=== PATIENT | male | born 1975 | race Caucasian/White ===

== ENCOUNTER 2021-09-04 11:47 | Emergency (ER) | payer OTHER, SELFPAY ==
[2021-09-04 13:38] VITALS: BP 162/100; PULSE 93; RESP 16; TEMP 36.7; O2SAT 96; BMI 25.2
[2021-09-04 13:55] VITALS: BP 159/96; PULSE 97; RESP 16; O2SAT 96
[2021-09-04] MEDS: 0.9 % Sodium Chloride 1,000 ML 999 ML IV (14:19)
--- NOTE | 2021-09-04 14:21 | ED.SKABFB ---
HPI - Skin/Abscess/Foreign Bdy General Chief complaint: Skin/Abscess/Foreign Body Stated complaint: peace of food stuck in throat Time Seen by Provider: 09/04/21 13:54 Source: patient Mode of arrival: ambulatory Limitations: no limitations History of Present Illness HPI narrative: 46-year-old male who presents emergency department for evaluation of a steak esophageal food bolus obstruction. Patient states that yesterday at around 18:00 hours he ate a piece of steak the he had just grilled. He states that when he swallowed the meat and I got stuck. Patient states that he has tried multiple home remedies including soda, honey and milk without being able to swallow down the food bolus. Patient states he feels like the steak is stuck any points to his xiphoid area when asked to localize the sensation. He states that he is having difficulty swallowing his saliva and has to spit it up. The patient states that he does not have heartburn. He has had no difficulty swallowing liquids or solids until this event. He is not pain or lost any weight. He has never had an endoscopy before. MD complaint: foreign body (A soft) Onset (ago): hour(s) (20) Location: chest (At the level of the xiphoid process) Severity: mild Quality: other (Pressure) Pain Consistency: constant Relieving factors: none Exacerbating factors: none Context: other (Started after he swallowed a large piece of meat) Associated symptoms: denies other symptoms Related Data Allergies Allergy/AdvReac Type Severity Reaction Status Date / Time acetaminophen [From VICODIN] Allergy Unknown HIVES Unverified 11/19/19 15:15 hydrocodone [From VICODIN] Allergy Unknown HIVES Unverified 11/19/19 15:15 Penicillins [PCN] Allergy Unknown HIVES Unverified 11/19/19 15:15 Review of Systems Review of Systems: Yes all other systems are reviewed and are negative [facility] Past Medical History [facility] Narrative: Past medical history: None. Past surgical history left foot fracture requiring ORIF. Social history: He denies tobacco use. He states he drinks 2 beers per day. He denies drug use. Social History Social History Advance Directives: No Advance Directives Information Provided: Yes Physical Exam Vital Signs: Vital Signs: Last Vital Signs Temp 98.0 F 09/04/21 13:38 Pulse 97 09/04/21 13:55 Resp 16 09/04/21 13:55 BP 159/96 H 09/04/21 13:55 Pulse Ox 96 09/04/21 13:55 O2 Del Method 09/04/21 13:55 BMI result Body Mass Index 25.2 Const: General: cooperative and no acute distress Orientation/consciousness: oriented to person and oriented to place Limitations: no limitations HEENT: Head: Yes normal to inspection, Yes normocephalic and Yes atraumatic Ears: external ears normal General nose exam: Normal external nose present Face and sinus: Yes normal facial exam Mouth: Normal oral and palatal mucosa present Throat: Yes posterior oropharynx normal Eyes: General: appearance normal, both eyes and all related structures Pupils: Equal, round and reactive pupils present Neck: Neck: Yes normal visual inspection, Yes no lymphadenopathy, Yes trachea midline and Yes supple Chest: Chest palpation & inspection: normal inspection of the chest and normal palpation of entire chest wall Resp: Effort & Inspection: normal respiratory effort and able to speak in complete sentences Auscultation: clear to auscultation bilaterally Cardio: Rate: regular rate Rhythm: regular rhythm Heart sounds: S1 normal heart sound present, S2 normal heart sound present and no murmurs GI: Inspection: Yes normal to inspection Palpation (GI): Soft to palpation, nontender and no guarding Auscultation: normal bowel sounds : General: Yes no CVA tenderness Back/Spine/Pelvis: Back: no CVA tenderness Skin: General skin exam: no rashes or lesions noted Neuro: General: oriented to person and oriented to place Cranial nerves: Yes CN's II-XII intact bilaterally and Yes Equal, round and reactive pupils present Cognition (Neuro): normal cognition Motor exam (neuro): 5/5 motor strength present throughout Extrem: General: Yes normal to inspection Psych: Appearance: grossly normal Speech and movement: Normal speech and movement present Affect: normal affect Attitude: cooperative Thought process: Normal thought process present Thought content: Normal thought content present Course Course Course Narrative: 46-year-old male who presents emergency department for evaluation of esophageal food bolus obstruction (steak) with symptoms occurring yesterday at 18:00 hours (20 hours prior to evaluation). The patient did not have any prodromal difficulty with swallowing liquids or solids, he has had no reflux/heartburn like symptoms, he has had no weight loss or weight gain. Patient's examination is unremarkable. I did order glucagon 4 mg IV to see if this helps him swallow the food bolus. If this does not work I will try nitroglycerin sublingually. If these to treatments were unsuccessful, I will contact our geothermal plant manager. 1650: The patient was treated with glucagon 4 mg IV and nitroglycerin sublingually x2 tablets with no relief of his obstruction. I did contact the covering geothermal plant manager, Dr. Ruby and he came to the emergency department and evaluated patient. The patient will be taken to the OR for endoscopy, he will be recovered in the postop area and then discharge from there. Therefore the patient will be discharged from the ED prior to going to the OR. Patient's laboratory evaluation revealed a normal H&H of 15 in 43.6 with an elevated MCV of 99.5. Patient's comprehensive metabolic panel revealed an elevated glucose 118, elevated bilirubin 1.4, elevated AST and ALT of 71 and 73. I did discuss these abnormalities with the patient. I told him and concerned that he may be drinking more alcohol states that he is aware of and that this may be causing him to have problems with his liver. The patient understood this discussion and the need to cut down or stop drinking alcohol.. MDM - Skin/Abscess/Foreign Bdy Medical Records Attestation: I reviewed the patient's medical records. Lab Data Attestation: I reviewed the patient's lab results. Result diagrams: 09/04/21 15:38 09/04/21 15:38 Labs: Lab Results 09/04/21 09/04/21 09/04/21 Range/Units 15:37 15:38 15:38 WBC 6.0 (4.8-10.8) X10*3/uL RBC 4.38 L (4.60-5.80) X10*6/uL Hgb 15.3 (14.0-18.0) g/dl Hct 43.6 (42.0-52.0) % MCV 99.5 H (80.0-98.0) fL MCH 34.9 H (27.0-33.0) pg MCHC 35.1 (31.0-36.0) g/dl RDW 11.9 (11.0-16.0) % Plt Count 89 L (160-400) X10*3/uL MPV 10.9 (9.4-12.4) fL Immature Gran % (Auto) 0.5 H (0.0-0.4) % Neut % (Auto) 79.4 H (45-73) % Lymph % (Auto) 9.7 L (20-40) % [place] % (Auto) 8.3 (2-11) % Eos % (Auto) 1.8 (0-4) % Baso % (Auto) 0.3 (0-2) % Lymph # (Auto) 0.6 L (1.2-4.9) X10*3/uL [place] # (Auto) 0.5 (0.1-1.2) X10*3/uL Eos # (Auto) 0.1 (0.0-0.4) X10*3/uL Baso # (Auto) 0.0 (0.0-0.2) X10*3/uL Abs Immat Gran (auto) 0.03 (0.00-0.03) X10*3/uL Absolute Neuts (auto) 4.8 (2.0-8.3) x10*3/uL Absolute Nucleated RBC 0.000 (0.0-0.012) X10*3/uL Nucleated RBC % (auto) 0.0 (0.0-0.2) /100WBC Sodium 144 (135-145) mmol/L Potassium 3.9 (3.3-5.1) mmol/L Chloride 106 (96-108) mmol/L Carbon Dioxide 28 (22-29) mmol/L Anion Gap 14 (12-20) BUN 14 (9-16) mg/dL Creatinine 0.92 (0.5-1.4) mg/dL Estim Creat Clear Calc 119.9 Estimated GFR > 60 Random Glucose 118 H (60-115) mg/dL Calcium 9.2 (8.4-10.2) mg/dL Total Bilirubin 1.4 H (0.0-1.0) mg/dL AST 71 H (5-37) U/L ALT 73 H (0-40) U/L Alkaline Phosphatase 91 (39-117) U/L Total Protein 7.9 (6.5-8.0) g/dL Albumin 4.7 (3.5-5.0) g/dL COVID-19 ([facility]) Negative (Negative) COVID-19 Clin Com See Note Discharge Plan Discharge Clinical Impression: Esophageal obstruction due to food impaction, Elevated liver enzymes Patient Disposition: Home, Self-Care Instructions: Alcoholic Hepatitis (ED)
[2021-09-04] MEDS: Nitroglycerin 0.4 MG TAB.SUBL SUBLINGUAL ×2 (14:59→15:10)
--- NOTE | 2021-09-04 15:30 | PC.NURSE ---
Pt remains unable to tolerate po. plan is to have MD alvarez to evaluate.
[2021-09-04 15:44] LABS: MANUAL DIFF FLAG NO
--- NOTE | 2021-09-04 15:46 | PC.NURSE ---
Per spouse: pt is recovering from opioids and would like nursing staff to be aware of any d/c medications of that nature.
[2021-09-04 15:49] LABS: Basophils Percent Auto 0.3 % (0-2); Eosinophils Absolute Auto 0.1 X10*3/uL (0.0-0.4); Eosinophils Percent Auto 1.8 % (0-4); Hematocrit 43.6 % (42.0-52.0); Hemoglobin 15.3 g/dl (14.0-18.0); Imm Gran Abs Auto 0.03 X10*3/uL (0.00-0.03); Imm Gran Pct Auto 0.5 % (0.0-0.4); Lymphocytes Absolute Auto 0.6 X10*3/uL (1.2-4.9); Lymphocytes Percent Auto 9.7 % (20-40); Mean Corpuscular HGB Conc 35.1 g/dl (31.0-36.0); Mean Corpuscular Hemoglobin 34.9 pg (27.0-33.0); Mean Corpuscular Volume 99.5 fL (80.0-98.0); Mean Platelet Volume 10.9 fL (9.4-12.4); Monocytes Absolute Auto 0.5 X10*3/uL (0.1-1.2); Monocytes Percent Auto 8.3 % (2-11); Neutrophils Absolute Auto 4.8 x10*3/uL (2.0-8.3); Neutrophils Percent Auto 79.4 % (45-73); Red Blood Count 4.38 X10*6/uL (4.60-5.80); Red Cell Distribution Width 11.9 % (11.0-16.0)
[2021-09-04 15:57] LABS: Platelet Count 89 X10*3/uL (160-400)
[2021-09-04 16:27] LABS: COVID-19 Test Negative (Negative); IDNOW Serial# 55D5AD1C
[2021-09-04 16:29] LABS: Alanine Aminotransferase 73 U/L (0-40); Albumin Level 4.7 g/dL (3.5-5.0); Alkaline Phosphatase 91 U/L (39-117); Anion Gap 14 (12-20); Aspartate Amino Transferase 71 U/L (5-37); Bilirubin Total 1.4 mg/dL (0.0-1.0); Blood Urea Nitrogen 14 mg/dL (9-16); Calcium 9.2 mg/dL (8.4-10.2); Carbon Dioxide 28 mmol/L (22-29); Chloride 106 mmol/L (96-108); Creatinine Clr Calc Pharmacy 119.9; Estimated Glomerular Filt Rate > 60; Glucose Random 118 mg/dL (60-115); Potassium 3.9 mmol/L (3.3-5.1); Sodium 144 mmol/L (135-145); Total Protein 7.9 g/dL (6.5-8.0)
--- NOTE | 2021-09-04 16:58 | PM.EVENT ---
Event Note Date of Service: 09/04/21 Event Note: GI Consult-Full note dictated Imp: Esophageal obstruction from steak for > 24 hours and refractory to medical therapy. This most likely reflects an obstruction from too large a piece of meat and/or an underlying esophageal ring. Rec: EGD with possible dilation with MAC today. Full consent has been obtained from him for this, including risks of bleeding and perforation. D/W patient in detail and he is comfortable with this plan. Thanks
--- NOTE | 2021-09-04 17:03 | MHC.SHP ---
Pre-Procedural Eval Section A Date of Service: 09/04/21 The patient is an INPATIENT: No The History & Physical has been completed within 30 days and I have reviewed it.: Yes Section B Chief Complaint: peace of food stuck in throat Allergies: Allergies Allergy/AdvReac Type Severity Reaction Status Date / Time acetaminophen [From VICODIN] Allergy Unknown HIVES Unverified 11/19/19 15:15 hydrocodone [From VICODIN] Allergy Unknown HIVES Unverified 11/19/19 15:15 Penicillins [PCN] Allergy Unknown HIVES Unverified 11/19/19 15:15 Plan I have reviewed the history and physical and performed a pertinent physical examination on my patient. No changes have occurred unless specified.
[2021-09-04 17:16] VITALS: BP 165/97; PULSE 88; RESP 17; TEMP 36.9; O2SAT 96
--- NOTE | 2021-09-04 17:22 | PC.NURSE ---
ed d/c instructions give. per patient do not disclose LFT and alcoholic hepatitis status to .
--- NOTE | 2021-09-04 18:04 | PM.OP ---
Brief Operative Note Date of Service: 09/04/21 Pre-op diagnosis: Esophageal food impaction Post-op diagnosis: other (Same, Esophagitis) Procedure: Upper endoscopy with removal of esophageal foreign body by breaking it up and then pushing it into the stomach Surgeon: Jonathan Ruby Anesthesia: MAC Was an [employer] used for this Procedure?: No Estimated blood loss (mL): 4.0 Pathology: none sent Condition: stable Disposition: PACU
[2021-09-04 18:10] VITALS: BP 154/90; PULSE 85; RESP 20; TEMP 36.7; O2SAT 98
--- NOTE | 2021-09-04 18:10 | P.CONAN_ITS ---
HPI - Anesthesia Eval Consult details Narrative: 46 M w/ food impaction for 24 hours w/ steak; unable to swallow/drink; denies any choking or aspiration; slept w/o resp problem overnight PMFSH Active Problems Active Problems: All Active Problems (Updated 09/04/21 @ 17:01 by Juan Christian MD) Esophageal obstruction due to food impaction (Acute) Elevated liver enzymes (Acute) Family History Family history of problems with anesthesia: No Surgical History History of Problems with Anesthesia: No Social History Social History Advance Directives: No Advance Directives Information Provided: Yes Meds Allergies Allergy/AdvReac Type Severity Reaction Status Date / Time acetaminophen [From VICODIN] Allergy Unknown HIVES Unverified 11/19/19 15:15 hydrocodone [From VICODIN] Allergy Unknown HIVES Unverified 11/19/19 15:15 Penicillins [PCN] Allergy Unknown HIVES Unverified 11/19/19 15:15 Active Medications: Current Medications Pantoprazole Sodium (Pantoprazole Sodium 40 Mg/10 Ml Vial) 40 mg IVPUSH ONCE ONE Stop: 09/04/21 18:07 Exam Exam Date and Time: September 04, [id number] Height,Weight and Vital Signs: Height 6 ft 3 in Weight 201 lb 15.095 oz Last Vital Signs Temp 98.5 F 09/04/21 18:05 Pulse 85 09/04/21 18:05 Resp 20 09/04/21 18:05 BP 154/90 H 09/04/21 18:05 Pulse Ox 98 09/04/21 18:05 O2 Del Method 09/04/21 18:05 Pertinent Lab Results Pertinent Lab Results: Laboratory Tests 09/04/21 09/04/21 09/04/21 15:37 15:38 15:38 WBC 6.0 RBC 4.38 L Hgb 15.3 Hct 43.6 MCV 99.5 H MCH 34.9 H MCHC 35.1 RDW 11.9 Plt Count 89 L MPV 10.9 Immature Gran % (Auto) 0.5 H Neut % (Auto) 79.4 H Lymph % (Auto) 9.7 L [place] % (Auto) 8.3 Eos % (Auto) 1.8 Baso % (Auto) 0.3 Lymph # (Auto) 0.6 L [place] # (Auto) 0.5 Eos # (Auto) 0.1 Baso # (Auto) 0.0 Abs Immat Gran (auto) 0.03 Absolute Neuts (auto) 4.8 Absolute Nucleated RBC 0.000 Nucleated RBC % (auto) 0.0 Sodium 144 Potassium 3.9 Chloride 106 Carbon Dioxide 28 Anion Gap 14 BUN 14 Creatinine 0.92 Estim Creat Clear Calc 119.9 Estimated GFR > 60 Random Glucose 118 H Calcium 9.2 Total Bilirubin 1.4 H AST 71 H ALT 73 H Alkaline Phosphatase 91 Total Protein 7.9 Albumin 4.7 COVID-19 ([facility]) Negative COVID-19 Clin Com See Note Airway Mallampati Class: I TM Dist: >3cm Neck ROM: Full Loose/Missing/Broken Teeth: No Heart: RRR Lungs: Clear Assessment and Plan Assessment Anesthesia Assessment: Anesthesia Plan Discussed and Chart Reviewed Final Anesthetic Review Family History of Problems with Anesthesia: No History of Problems with Anesthesia: No NPO: Yes ASA Class: I and Emergency Final Preanesthetic Review: No Changes in Pt Med Stat, Meds/Allgs Chart Reviewed, Consent Obtained/Reviewed and Anes Risks/Benef Reviewed Patient Risk: Intermediate Procedure Risk: Low Anesthetic Plan Anesthetic Plan: MAC: Disposition: Standard PACU
--- NOTE | 2021-09-04 18:11 | PM.EVENT ---
Event Note Date of Service: 09/04/21 Event Note: Upper endoscopy with removal of food impaction-Full note dictated Findings: 1. Large food bolus in distal esophagus. Broken up with the biopsy forceps and then pushed entirely into the stomach. 2. Distal 5cm of esophagus with friability, edema, and some ulcerations from the food impaction for the past 24 hours. 3. No evidence of stricture, mass, nor mucosal tear. Rec: Dose of IV PPI now and Rx for Omeprazole 40mg QD for 1 month. Eat soft food for 48-72 hours, then eat carefully thereafter. F/U outpatient Barium swallow. F/U with PCP re: low platelets and elevated LFT's. No ASA/NSAIDs for 2 weeks. D/W in detail.
[2021-09-04] MEDS: Pantoprazole Sodium 40 MG/10 ML VIAL IVPUSH (18:24)
[2021-09-04 18:25] VITALS: BP 166/104; PULSE 85; RESP 20; TEMP 36.9; O2SAT 98
[2021-09-04 18:40] VITALS: BP 160/99; PULSE 78; RESP 18; TEMP 37; O2SAT 98
--- NOTE | 2021-09-04 23:39 | CONS_ITS ---
DATE OF SERVICE: REQUESTING PHYSICIAN: Dr. Christian from the emergency room. REASON FOR CONSULTATION: Esophageal food impaction and dysphagia. PRESENT ILLNESS: The patient is a 46-year-old healthy male who was well up until last evening when he was about to eat some steak. He describes that he took one bite and it immediately became stuck in the esophagus and has remained so. He describes very rare episodes of occasional dysphagia to steak in the past, but usually within 1 or 2 minutes it will always resolve itself. He has never had an episode like this. He denies any chronic heartburn, anorexia, early satiety, nor any other GI complaints. All evening, overnight, and throughout today, his symptoms have persisted with inability to swallow any saliva. He finally came to the ER where his symptoms have been refractory to IV glucagon and SL nitroglycerin. He denies any chest pain or shortness of breath. He denies any abdominal pain. He denies any particular GI complaints such as diarrhea, hematochezia, nor melena. He denies any jaundice. MEDICATIONS: Adderall and occasional ibuprofen. PAST SURGICAL HISTORY: He has had 3 foot surgeries on the left foot. He denies any other surgeries. PAST MEDICAL HISTORY: He denies history of heart disease, diabetes, stroke, lung disease, nor kidney disease. SOCIAL HISTORY: He does not smoke. He drinks occasional beer. He is . 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 FAMILY HISTORY: Noncontributory. REVIEW OF SYSTEMS: CONSTITUTIONAL: He has been feeling well up until last evening. CARDIAC: No chest pain. PULMONARY: No cough. No hemoptysis. GASTROINTESTINAL: As above. URINARY: No dysuria or hematuria. PHYSICAL EXAMINATION: GENERAL: The patient is a pleasant, alert, comfortable male, in no distress. SKIN: Warm and dry. NECK: Supple without lymphadenopathy. CHEST: Clear. CARDIAC: Normal S1, S2. There is no chest wall nor neck crepitus. ABDOMEN: Soft, nondistended, nontender. LABORATORY DATA: White blood cell count 6000, hemoglobin 15.3, platelets 89,000. Normal electrolytes. Total bilirubin 1.4, AST 71, ALT 73, alkaline phosphatase 91, albumin 4.7. COVID was negative. IMPRESSION: Given the patient's clinical history, this represents an esophageal food impaction from either too large piece of food and/or an underlying esophageal ring. Recommendations: At this point since he has been refractory to medical therapy and the symptoms of dysphagia persist, he will undergo an upper endoscopy today with monitored anesthesia care. He may require balloon dilation as well if he has an underlying ring or stricture. Full consent has been obtained from him for this, including risks of bleeding and perforation. He will be advised to follow up with his primary care physician regarding his low platelet count and slightly elevated LFTs to be sure this does not represent any other chronic condition such as liver disease. MD JESSICA Ugalde/CAITLIN / [id number] MTDD
--- NOTE | 2021-09-11 16:18 | OP_ITS ---
SURGEON: Jonathan Ruby MD INDICATIONS: The patient presents with acute dysphagia in relation to eating steak that was refractory to medical therapy. Full consent has been obtained from him for this, including risks of bleeding and perforation. PREOPERATIVE DIAGNOSIS: POSTOPERATIVE DIAGNOSIS: PROCEDURE PERFORMED: ESTIMATED BLOOD LOSS: COMPLICATIONS: ANESTHESIA: Monitored anesthesia care. ASSISTANTS: SPECIMENS: PROCEDURES: Upper endoscopy with removal of esophageal foreign body. PREOPERATIVE DIAGNOSES: Dysphagia and esophageal food impaction. POSTOPERATIVE DIAGNOSES: Dysphagia and esophageal food impaction with resultant esophagitis. DESCRIPTION OF PROCEDURE: The patient was placed in the left lateral decubitus position. The Olympus video gastroscope was passed in the posterior oropharynx and upper esophagus under direct vision. The scope was passed slowly to the distal esophagus. At this level, between 35 cm and 40 cm, was a large food bolus. This was gradually broken up with a biopsy forceps and then eventually pushed into the stomach by using the scope and the biopsy forceps. Once the entire piece was pushed into the stomach, the underlying esophageal mucosa was noted to be quite friable with some ulcerations, consistent with the piece of food sitting there for about 24 hours. The scope easily entered the stomach. The large food bolus was noted in the proximal stomach. The proximal gastric mucosa appeared normal. I did not inspect the distal stomach nor duodenum given the large amount of food and some liquid in the proximal stomach. I did retroflex visualizing the proximal stomach, which appeared normal, without any sign of mass or ulceration, other than the food bolus sitting in the proximal stomach. The scope was straightened and withdrawn back to the esophagus. The distal 5 cm of the esophagus was notable for friable mucosa with some ulcerations. There was no sign of any mucosal tear, mass, nor stricture. Proximal to 35 cm, the esophageal mucosa appeared normal. The scope was withdrawn from the patient. He tolerated the procedure well and was returned to recovery area in stable condition. IMPRESSION: 1. Esophageal food impaction, status post endoscopic removal of the food bolus by pushing it into the stomach. 2. Esophagitis, secondary to impacted food bolus. PLAN: The patient will receive a dose of IV pantoprazole in recovery. I have given him a prescription to start omeprazole 40 mg daily HILARIO and stay on that daily for at least 1 month. I will arrange for an outpatient barium swallow to rule out any underlying esophageal ring that might need a repeat endoscopy and balloon dilation. Instructions have been given that he needs to eat more carefully by cutting up food and chewing carefully. I did advise him both verbally and with written instructions that he needs to follow up with his primary care doctor regarding some elevated LFTs and thrombocytopenia. He denies any chronic alcohol use, but this may reflect some underlying liver disease and it should be followed up by the primary care doctor. This has all been discussed with his as well. MD JESSICA Ugalde/CAITLIN / [id number] MTDD
== END 2021-09-04 18:46 | disposition home or self-care (01) ==
PROVIDERS: Internal Medicine; Emergency Provider Emergency Medicine Emergency Medical Services; PCP Physician Assistant
PROC: 0DJ08ZZ Inspection of Upper Intestinal Tract, Via Natural or Artificial Opening Endoscopic (ICD-10-PCS; CPT 43235; principal; 2021-09-04 17:00)
DX: T18.128A Food in esophagus causing other injury, initial encounter (principal); K20.80 Other esophagitis without bleeding; X58.XXXA Exposure to other specified factors, initial encounter; Y93.89 Activity, other specified; Y92.017 Garden or yard in single-family (private) house as the place of occurrence of the external cause; Y99.9 Unspecified external cause status
CPT/HCPCS: 43247; 80053; 85025; 87635; 96361; 96374; 96375; 99283; 99285; J1610

== ENCOUNTER 2021-10-18 10:17 | Outpatient (REF) | payer OTHER, SELFPAY ==
--- NOTE | ~2021-10-18 | FL_ITS ---
EXAMINATION: FL BARIUM SWALLOW CLINICAL INFORMATION: 46-year-old male with recent esophageal food impaction requiring endoscopic intervention. Otherwise no symptoms. COMPARISON: None TECHNIQUE: Barium swallow examination is performed using fluoroscopic evaluation in addition to multiple fluoroscopic spot views, including cine images during swallowing. The patient is imaged both upright and prone and using both thick and thin sulfate along with effervescent granules. Barium pill also used. Fluoroscopy time: 2.9 minutes DAP: 13.981 Gycm2 Images: 34 FINDINGS: Swallowing function is normal and there is no aspiration. The cervical esophagus has no web or diverticulum or stricture. The cervical thoracic junction appears normal. The thoracic esophagus shows normal motility with no obstruction, stricture, or ulceration. There is no hiatal hernia. There is intermittent gastroesophageal reflux seen during fluoroscopy to proximal thoracic esophagus. Barium pill promptly passed from mouth to distal thoracic esophagus. The pill remained just above the esophagogastric junction for 10 minutes, eventually passing into the stomach. Additional swallowing thin barium sulfate during barium pill retention shows smooth overlying mucosal contours. No visible ulceration or shouldering or focal stricture. A cursory view of the upper abdomen shows no gastric outlet obstruction. FL/FL barium swallow IMPRESSION: -Retention of barium pill just above the esophagogastric junction for 10 minutes before final passage. -Normal esophageal motility. No visible stricture or ulceration. Mucosal surfaces appear smooth. -Intermittent spontaneous gastroesophageal reflux. No hiatal hernia.
== END 2021-10-18 10:18 | disposition home or self-care (01) ==
LOC: HO.XRAY 10:17
PROVIDERS: PCP Physician Assistant; Visit Provider Internal Medicine
DX: K21.9 Gastro-esophageal reflux disease without esophagitis (principal)
CPT/HCPCS: 74220

== ENCOUNTER 2021-10-24 06:32 | Day surgery (SDC) | payer OTHER, SELFPAY ==
[2021-10-24 06:55] VITALS: BP 153/93; PULSE 85; RESP 17; TEMP 37.1; O2SAT 98; BMI 26.9
[2021-10-24 06:56] VITALS: BMI 26.9
[2021-10-24] MEDS: Lactated Ringers 1,000 ML 50 ML IVCONT (06:56)
--- NOTE | 2021-10-24 07:29 | HO.ANESPROP2 ---
HPI - Anesthesia Eval Consult details Narrative: 46 yo male patient for EGD with balloon dilatation PMFSH Active Problems Active Problems: ETOH- 2 beers daily Family History Family history of problems with anesthesia: No Surgical History Surgical History (Updated 10/24/21 @ 07:51 by Bhavya Andre MD) History of esophagogastroduodenoscopy History of Problems with Anesthesia: No Social History Social History Alcohol intake: current Alcohol intake frequency: 0-2 drinks per day Patient Tobacco Use Status: Never used Tobacco Use of substances other than those prescribed or required for medical reasons: No Are you DNR?: No Advance Directives: No Advance Directives Information Provided: Yes Recently lost weight without trying: No Meds Allergies Allergy/AdvReac Type Severity Reaction Status Date / Time acetaminophen [From VICODIN] Allergy Unknown HIVES Unverified 11/19/19 15:15 hydrocodone [From VICODIN] Allergy Unknown HIVES Unverified 11/19/19 15:15 Penicillins [PCN] Allergy Unknown HIVES Unverified 11/19/19 15:15 Home Medications Medication Instructions Recorded Confirmed Last Taken Type dextroamphetamine-amphetamine 10 1 tab PO DAILY 10/23/21 10/23/21 Unknown History mg tablet dextroamphetamine-amphetamine 20 1 tab PO BID 10/23/21 10/23/21 Unknown History mg tablet ibuprofen 800 mg tablet 1 tab PO TID 10/23/21 10/23/21 Unknown History omeprazole 40 mg capsule,delayed 1 cap PO QAM 10/23/21 10/23/21 Unknown History release Exam Exam Date and Time: October 24, [id number] Height,Weight and Vital Signs: Height 6 ft 2 in Weight 95.254 kg Last Vital Signs Temp 98.8 F 10/24/21 06:55 Pulse 85 10/24/21 06:55 Resp 17 10/24/21 06:55 BP 153/93 H 10/24/21 06:55 Pulse Ox 98 10/24/21 06:55 O2 Del Method 10/24/21 06:55 Airway Mallampati Class: II TM Dist: >3cm Neck ROM: Full Loose/Missing/Broken Teeth: No (Patient denies broken or loose teeth) Heart: RRR Lungs: CTAB Assessment and Plan Assessment Anesthesia Assessment: Anesthesia Plan Discussed and Chart Reviewed Final Anesthetic Review Family History of Problems with Anesthesia: No History of Problems with Anesthesia: No NPO: Yes ASA Class: II Final Preanesthetic Review: No Changes in Pt Med Stat, Meds/Allgs Chart Reviewed, Consent Obtained/Reviewed and Anes Risks/Benef Reviewed Patient Risk: Intermediate Procedure Risk: Low Assessment/Block/Sedation in SS: Assess/Block/Sedation-SS Anesthetic Plan Anesthetic Plan: MAC: Disposition: Standard PACU
--- NOTE | 2021-10-24 08:11 | PM.OP ---
Brief Operative Note Date of Service: 10/24/21 Pre-op diagnosis: Dysphagia, Abnormal Barium swallow Post-op diagnosis: other (Gastric ulcer, GERD) Procedure: EGD with biopsies and Balloon dilation of EG Junction Surgeon: Jonathan Ruby Anesthesia: MAC Was an Veneer Production Machine Operator used for this Procedure?: No Estimated blood loss (mL): 2.0 Pathology: other (A. Gastric ulcer B. Gastric antrum C. Esophagus 38-40cm) Condition: stable Disposition: PACU
[2021-10-24 08:13] VITALS: BP 124/77; PULSE 83; RESP 16; TEMP 36.4; O2SAT 97
[2021-10-24 08:28] VITALS: BP 122/76; PULSE 78; RESP 16; TEMP 36.4; O2SAT 96
[2021-10-24 08:32] LABS: Basophils Percent Auto 1.3 % (0-2); Eosinophils Absolute Auto 0.4 X10*3/uL (0.0-0.4); Eosinophils Percent Auto 15.2 % (0-4); Hematocrit 40.7 % (42.0-52.0); Hemoglobin 14.3 g/dl (14.0-18.0); Imm Gran Abs Auto 0.01 X10*3/uL (0.00-0.03); Imm Gran Pct Auto 0.4 % (0.0-0.4); Lymphocytes Absolute Auto 0.7 X10*3/uL (1.2-4.9); Lymphocytes Percent Auto 29.1 % (20-40); Mean Corpuscular HGB Conc 35.1 g/dl (31.0-36.0); Mean Corpuscular Hemoglobin 34.1 pg (27.0-33.0); Mean Corpuscular Volume 97.1 fL (80.0-98.0); Mean Platelet Volume 11.2 fL (9.4-12.4); Monocytes Absolute Auto 0.2 X10*3/uL (0.1-1.2); Monocytes Percent Auto 9.7 % (2-11); Neutrophils Absolute Auto 1.1 x10*3/uL (2.0-8.3); Neutrophils Percent Auto 44.3 % (45-73); Red Blood Count 4.19 X10*6/uL (4.60-5.80); Red Cell Distribution Width 12.1 % (11.0-16.0)
[2021-10-24 08:35] LABS: INTERNATIONAL NORM RATIO 1.1 (0.9-1.1); Prothrombin Time 12.9 SEC (10.0-13.1)
[2021-10-24 08:45] LABS: Platelet Count 77 X10*3/uL (160-400); White Blood Count 2.4 X10*3/uL (4.8-10.8)
--- NOTE | 2021-10-24 08:52 | OP_ITS ---
SURGEON: Jonathan Ruby MD INDICATIONS: The patient presents for evaluation of previous dysphagia and abnormal barium swallow. Full consent obtained from him for this, including risks of bleeding and perforation. PREOPERATIVE DIAGNOSIS: POSTOPERATIVE DIAGNOSIS: PROCEDURE PERFORMED: Esophagogastroduodenoscopy with balloon dilation of gastroesophageal junction and biopsies. ESTIMATED BLOOD LOSS: COMPLICATIONS: ANESTHESIA: Monitored anesthesia care. ASSISTANTS: SPECIMENS: PREOPERATIVE DIAGNOSES: Previous dysphagia and abnormal barium swallow. POSTOPERATIVE DIAGNOSES: Previous dysphagia and abnormal barium swallow, gastric antral ulcer, small hiatal hernia, gastroesophageal reflux. DESCRIPTION OF PROCEDURE: The patient was placed in the left lateral decubitus position. The Olympus video gastroscope was passed in the posterior oropharynx and upper esophagus under direct vision. The scope was passed slowly into the distal esophagus. The gastroesophageal junction appeared at 40 cm. With insufflation of air, this did open well and there was no obvious stricture, nor ring. The gastroesophageal junction appeared regular, although there was some erythema. The esophageal mucosa for the distal 5-10 cm, did have some overlying coating, but this did wash away for the most part and I do not think it represented esophagitis, nor any esophageal candidiasis. The scope passed easily into the stomach and was advanced to the pylorus. The duodenum was cannulated to the descending portion. The duodenum including the bulb appeared normal without mass or ulceration. Scope was withdrawn back to the stomach. The gastric antrum had an area of some edema with an approximately 10 mm ulcer, but with a clean base and no bleeding. Biopsies were obtained from the margins of this. The remainder of the gastric antrum appeared normal. Biopsies were obtained from the antrum as well. The gastric body appeared normal. The scope was retroflexed visualizing the proximal stomach carefully, which appeared normal, without any sign of mass or ulceration. Scope was straightened and withdrawn back to the esophagus. I did use a [employer] incremental balloon to dilate the gastroesophageal junction from 18 mm to 19 mm to 20 mm at the recommended pressure for between 30 and 60 seconds each. Post dilation there was some heme noted, but no real disruption was noted of the gastroesophageal junction. I did obtain biopsies between 38 and 40 cm as well. The scope was withdrawn through the remainder of the esophagus, which appeared normal. There was no evidence of any proximal esophageal rings, nor stricture. The scope was withdrawn from the patient. He tolerated the procedure well and was returned to recovery area in stable condition. IMPRESSION: 1. Gastric antral ulcer. 2. Rule out gastritis and/or Helicobacter pylori. 3. Small hiatal hernia. 4. Status post balloon dilation of gastroesophageal junction. PLAN: The results of the biopsies will be checked. If H pylori is present in the gastric biopsies, I would recommend treating that. He had been on omeprazole for about a month after the esophageal obstruction in September, but I am going to restart that given today's findings. He was advised to stay off all aspirin and NSAIDs long-term, as well as alcohol. He does have an appointment to see me later in the year as well. This was discussed with his as well. He was advised to call sooner as needed. MD JESSICA Ugalde/CAITLIN / [phone] MTDD
== END 2021-10-24 09:16 | disposition home or self-care (01) ==
PROVIDERS: Anesthesiology; PCP Internal Medicine; Visit Provider Internal Medicine
PROC: (CPT 43249; principal; 2021-10-24 07:30)
DX: R13.10 Dysphagia, unspecified (principal); K21.9 Gastro-esophageal reflux disease without esophagitis; K25.9 Gastric ulcer, unspecified as acute or chronic, without hemorrhage or perforation; K31.9 Disease of stomach and duodenum, unspecified; K44.9 Diaphragmatic hernia without obstruction or gangrene; Z79.899 Other long term (current) drug therapy
CPT/HCPCS: 43249; 43239; 36415; 85025; 85610; 88305; 88342; C1726; J2250

== ENCOUNTER 2023-01-13 18:27 | Emergency (ER) | payer OTHER, SELFPAY ==
--- NOTE | ~2023-01-13 | XR_ITS ---
EXAMINATION: XR KNEE, RIGHT CLINICAL INFORMATION: pain, injury COMPARISON: None available. TECHNIQUE: Four views of the right knee. FINDINGS: No fracture or joint effusion. Alignment is anatomic. Joint spaces are maintained. No abnormal soft tissue calcification. XR/XR knee RT 3V IMPRESSION: Normal right knee.
[2023-01-13 18:35] VITALS: BP 167/108; BP 180/100; PULSE 118; PULSE 120; RESP 20; TEMP 37.2; O2SAT 96; O2SAT 97; BMI 28.4
--- NOTE | 2023-01-13 18:46 | ED_ITS ---
HPI - General Adult General Chief complaint: Extremity Injury, Lower Stated complaint: R KNEE INJURY, UNABLE TO AMBULATE Time Seen by Provider: 01/13/23 18:45 Source: patient and EMS Mode of arrival: EMS Limitations: no limitations History of Present Illness HPI narrative: Patient is a 47 year old assigned male at with no reported medical history presenting to the emergency department today with right knee pain. Patient states that he was sitting with his legs crossed when he stood up, felt a pop in his right knee, and since has not been able bear weight on that side. Patient denies any dizziness, lightheadedness, abdominal pain, nausea, vomiting, fever, chills, blurry vision, double vision, loss of vision, chest pain, difficulty breathing, shortness of breath, back pain, night sweats, pain with urination, increased urinary frequency, increased urinary urgency, blood in his urine or stool, syncope or a near syncopal episode, bowel incontinence, bladder incontinence, bowel retention, bladder retention, or any other complaints at this time. Onset (ago): minute(s) Location: right and lower extremity Radiation: non-radiation Severity: mild Severity scale (1-10): 4 Quality: aching and dull Pain Consistency: constant Relieving factors: immobilization Exacerbating factors: movement Associated symptoms: denies other symptoms Treatments prior to arrival: none Related Data Home Medications Medication Instructions Recorded Confirmed dextroamphetamine-amphetamine 10 1 tab PO DAILY 10/23/21 10/23/21 mg tablet dextroamphetamine-amphetamine 20 1 tab PO BID 10/23/21 10/23/21 mg tablet ibuprofen 800 mg tablet 1 tab PO TID 10/23/21 10/23/21 omeprazole 40 mg capsule,delayed 1 cap PO QAM 10/23/21 10/23/21 release Allergies Allergy/AdvReac Type Severity Reaction Status Date / Time acetaminophen [From VICODIN] Allergy Unknown HIVES Verified 10/24/21 07:55 hydrocodone [From VICODIN] Allergy Unknown HIVES Verified 10/24/21 07:55 Penicillins [PCN] Allergy Unknown HIVES Verified 10/24/21 07:55 Review of Systems Constitutional: Constitutional: Reports no additional constitutional complaints, Denies chills, Denies fever(s) and Denies night sweats Eyes: Eyes: Reports no additional eye complaints, Denies blurry vision, Denies change in vision, Denies diplopia, Denies eye discharge, Denies loss of vision and Denies eye pain ENT: Denies dizziness Cardiovascular: Cardiovascular: Reports no additional cardiovascular complaints, Denies chest pain, Denies lightheadedness, Denies Loss of Consciousness and Denies dyspnea Respiratory: Respiratory: Reports no additional respiratory complaints and Denies dyspnea Gastrointestinal: Gastrointestinal: Reports no additional gastrointestinal complaints, Denies abdominal pain, Denies melena, Denies hematochezia, Denies change in bowel habits and Denies change in stool character Genitourinary: Genitourinary: Reports no additional male genitourinary complaints, Denies hematuria, Denies oliguria, Denies difficulty urinating, Denies dysuria, Denies urinary frequency, Denies urinary hesitancy, Denies urinary incontinence and Denies urinary urgency Musculoskeletal: Musculoskeletal: Reports no additional musculoskeletal complaints, Denies numbness and Denies tingling Comments: right knee pain Neurologic: Denies dizziness, Denies loss of vision, Denies numbness and Denies tingling Psychiatric: Psychiatric: Reports no additional psychiatric complaints Endocrine: Endocrine: Reports no additional endocrine complaints Hematologic/Lymphatic: Hematologic/Lymphatic: Reports no additional hematologic/lymphatic complaints Allergic/Immunologic: Allergic/Immunologic: Reports no additional allergic/immunologic complaints PMFSH Past Medical History Attestation statement: The following information was validated with the patient. Source: old records reviewed and nursing notes reviewed Surgical History History of esophagogastroduodenoscopy Social History Social History Alcohol intake: current Alcohol intake frequency: 0-2 drinks per day Alcohol type: beer Patient Tobacco Use Status: Never used Tobacco Smoked in Last 30 Days: No Use of substances other than those prescribed or required for medical reasons: No Advance Directives: No Advance Directives Information Provided: No Physical Exam ED Vital Signs: Vital Signs - 24 hr 01/13/23 18:35 01/13/23 20:14 Temperature 99 F Pulse Rate 118 H 123 H Respiratory Rate 20 18 Blood Pressure 167/108 H 145/103 H Pulse Oximetry 97 95 Oxygen Delivery Method Room Air Room Air BMI result Body Mass Index 28.4 Procedures Orthopedic Splinting/Casting Injury #1: Side: right Lower Extremity Injury Location: knee Lower Extremity Immobilizer: knee immobilizer Other Orthopedic Equipment: crutches Medical Decision Making Medical Decision Making MDM Narrative: Patient is a 47 year old assigned male at with no reported medical history presenting to the emergency department today with right knee pain. Patient's physical exam was unremarkable. Patient's right knee x-ray showed no acute process. I explained my physical exam findings as well as all test results to the patient. I answered all questions asked by the patient. Patient's right knee was placed in an immobilizer and the patient was given crutches with crutch instructions. Patient's PMS was intact prior to and after immobilizer placement. I stressed the importance of the patient taking his medication as prescribed. I stressed the importance of the patient following up with his primary care provider and an orthopedic provider. I stressed the importance of the patient returning to the emergency department immediately if his symptoms were to worsen or if he were to develop any dizziness, shortness of breath, difficulty breathing, chest pain, blurry vision, loss of vision, nausea, vomiting, abdomin al pain, fever, chills, back pain, or any other complaints. Patient verbalized agreement and understanding with this treatment plan and discharge. Differential Diagnosis Differential Diagnoses: The differential diagnosis associated with the presentation includes Knee pain Knee injury Knee sprain Knee strain Independent Interpretation I performed an independent interpretation of an: Plain X-Ray Interpretation: My interpretation is in agreement with the radiologist's impression of this imaging study. EXAMINATION: XR KNEE, RIGHT CLINICAL INFORMATION: pain, injury COMPARISON: None available. TECHNIQUE: Four views of the right knee. FINDINGS: No fracture or joint effusion. Alignment is anatomic. Joint spaces are maintained. No abnormal soft tissue calcification. XR/XR knee RT 3V IMPRESSION: Normal right knee. Dictated By: n Signed By: Electronically signed by n 01/13/231957 Radiology Impression Discussion of test interpretation with radiology: I have reviewed the radiologist's reading. Independent Historian Clinical information obtained from an independent historian. History obtained from or confirmed by: EMS (EMS provided additional history and confirmed the history provided by the patient.) Discharge Plan Discharge Clinical Impression: Knee sprain Patient Disposition: Home, Self-Care Instructions: Knee Sprain (DC) Additional Instructions: Follow up with your primary care provider and an orthopedic provider. Return to the emergency department immediately if your symptoms worsen or if you develop any dizziness, shortness of breath, difficulty breathing, chest pain, blurry vision, loss of vision, nausea, vomiting, abdominal pain, fever, chills, back pain, or any other complaints. Prescriptions: No Action ibuprofen 800 mg tablet 1 tab PO TID dextroamphetamine-amphetamine 10 mg tablet 1 tab PO DAILY omeprazole 40 mg capsule,delayed release(DR/EC) 1 cap PO QAM dextroamphetamine-amphetamine 20 mg tablet 1 tab PO BID Referrals: [facility] [Provider Group] (Call to establish and follow up with a primary care provider. If you already have a primary care provider, please follow up with them.) [facility] [place] [Provider Group] (Call to establish and follow up with a primary care provider. If you already have a primary care provider, please follow up with them.) [facility],[place] [Provider Group] (Call to establish and follow up with a primary care provider. If you already have a primary care provider, please follow up with them.) [facility] [Provider Group] (Call to establish and follow up with an orthopedic provider.) Interventions: ED Discharge Assessment Last Done: 01/13/23 20:15 Discharge Date/Time: 01/13/23 20:17 Print Language: South African
[2023-01-13 20:14] VITALS: BP 145/103; PULSE 123; RESP 18; O2SAT 95
== END 2023-01-13 20:17 | disposition home or self-care (01) ==
PROVIDERS: Emergency Provider Student in an Organized Health Care Education/Training Program
DX: S83.91XA Sprain of unspecified site of right knee, initial encounter (principal); X50.9XXA Other and unspecified overexertion or strenuous movements or postures, initial encounter; Y93.89 Activity, other specified; Y92.9 Unspecified place or not applicable; Y99.9 Unspecified external cause status
CPT/HCPCS: 73562; 99283; 99284

== ENCOUNTER 2024-07-29 09:19 | Day surgery (SDC) | payer BC, SELFPAY ==
--- OUTSIDE RECORDS SUMMARY | 2024-07-24 11:09 | XMS_ITS ---
Author Organization [facility] Address [address] [place] [address] Care Team Providers Care Manufacturing Support Engineer Name Role Phone Samira Diallo N.P. Primary Care Provider Todd Maldonado Unavailable [phone] Encounters Encounter Location Date Provider Diagnosis [facility] [address] [place] [address] 04/14/2024 Todd Ruby Plan Of Treatment Next Appt Details Provider Name:Todd Ruby , 07/29/2024 10:30:00 AM, [address] [place] [address] , [place], [place], [phone], Progress Notes * TODD ANGLIN JrDOB: 1975 (49 yo M)Acc No.[id number]:04/14/2024 Patient:?TODD ANGLIN Jr :1975???Age:48 Y???Sex:Male Address:[address] [place] [address] * true * Date:? Generated for Printi ng/Fajermaineg/eTransmitting on:?07/24/2024 11:09 AM EDT
[2024-07-24 14:42] VITALS: BMI 28.4
--- NOTE | 2024-07-28 09:49 | P.CONAN_ITS ---
Documented by User: Nola Scott NP 07/28/24 09:50 HPI - Anesthesia Eval Consult details Narrative: 49yo M for Upper Endoscopy and Colonoscopy Hx heavy ETOH - last labs 2021 with low plts, repeat DOS PMFSH Past Medical History Medical History (Updated 07/24/24 @ 14:45 by Maria E Bosch, ARIELLE) History of heavy alcohol consumption ADHD (attention deficit hyperactivity disorder) Family History Family history of problems with anesthesia: No Surgical History Surgical History (Updated 07/24/24 @ 14:38 by Maria E Bosch RN) Hx of hand surgery Hx of foot surgery History of esophagogastroduodenoscopy History of Problems with Anesthesia: No Social History Social History Alcohol intake: current Alcohol intake frequency: does not drink Alcohol type: beer Patient Tobacco Use Status: Never used Tobacco Second Hand Smoke Exposure: No Use of substances other than those prescribed or required for medical reasons: No Have you been hit, kicked, punched, or otherwise hurt by someone within the past year? If so, by whom?: No Are you DNR?: No Advance Directives: No Advance Directives Information Provided: Yes Advance Directives on File: No Poor oral hygiene: No Meds Allergies Allergy/AdvReac Type Severity Reaction Status Date / Time acetaminophen [From VICODIN] Allergy Unknown HIVES Verified 10/24/21 07:55 hydrocodone [From VICODIN] Allergy Unknown HIVES Verified 10/24/21 07:55 Penicillins [PCN] Allergy Unknown HIVES Verified 10/24/21 07:55 Home Medications ?Medication ?Instructions ?Recorded ?Confirmed ?Last Taken ?Type dextroamphetamine-amphetamine 20 1 tab PO BID 10/23/21 07/24/24 Unknown History mg tablet ibuprofen 800 mg tablet 1 tab PO TID 10/23/21 10/23/21 Unknown History omeprazole 40 mg capsule,delayed 1 cap PO QAM 10/23/21 07/24/24 Unknown History release Exam Height,Weight and Vital Signs: Height 6 ft 2 in Weight 100.244 kg Assessment and Plan Assessment Anesthesia Assessment: Chart Reviewed Final Anesthetic Review Family History of Problems with Anesthesia: No History of Problems with Anesthesia: No Documented by User: Rajeev Ramos MD 07/29/24 09:57 [facility] Past Medical History Medical History (Updated 07/24/24 @ 14:45 by Maria E Bosch, RN) History of heavy alcohol consumption ADHD (attention deficit hyperactivity disorder) Surgical History Surgical History (Updated 07/24/24 @ 14:38 by Maria E Bosch, ARIELLE) Hx of hand surgery Hx of foot surgery History of esophagogastroduodenoscopy Social History Social History Alcohol intake: current Alcohol intake frequency: does not drink Alcohol type: beer Patient Tobacco Use Status: Never used Tobacco Second Hand Smoke Exposure: No Use of substances other than those prescribed or required for medical reasons: No Have you been hit, kicked, punched, or otherwise hurt by someone within the past year? If so, by whom?: No Are you DNR?: No Advance Directives: No Advance Directives Information Provided: Yes Advance Directives on File: No Poor oral hygiene: No Meds Allergies Allergy/AdvReac Type Severity Reaction Status Date / Time acetaminophen [From VICODIN] Allergy Unknown HIVES Verified 10/24/21 07:55 hydrocodone [From VICODIN] Allergy Unknown HIVES Verified 10/24/21 07:55 Penicillins [PCN] Allergy Unknown HIVES Verified 10/24/21 07:55 Home Medications ?Medication ?Instructions ?Recorded ?Confirmed ?Last Taken ?Type dextroamphetamine-amphetamine 20 1 tab PO BID 10/23/21 07/24/24 Unknown History mg tablet ibuprofen 800 mg tablet 1 tab PO TID 10/23/21 10/23/21 Unknown History omeprazole 40 mg capsule,delayed 1 cap PO QAM 10/23/21 07/24/24 Unknown History release Exam Airway Mallampati Class: II TM Dist: >3cm Neck ROM: Full Loose/Missing/Broken Teeth: No Heart: ok Lungs: ok Assessment and Plan Assessment Anesthesia Assessment: Anesthesia Plan Discussed Final Anesthetic Review NPO: Yes ASA Class: III Final Preanesthetic Review: No Changes in Pt Med Stat, Meds/Allgs Chart Reviewed, Consent Obtained/Reviewed and Anes Risks/Benef Reviewed Patient Risk: Intermediate Procedure Risk: Intermediate Anesthetic Plan Anesthetic Plan: Agree w/ Assess. and Plan and TIVA Disposition: Standard PACU
[2024-07-29 09:42] VITALS: BP 120/87; PULSE 88; RESP 16; TEMP 36.7; O2SAT 96
[2024-07-29 09:50] LABS: Hematocrit 48.3 % (42.0-52.0); Mean Corpuscular HGB Conc 35.2 g/dl (31.0-36.0); Mean Corpuscular Hemoglobin 30.9 pg (27.0-33.0); Mean Corpuscular Volume 87.8 fL (80.0-98.0); Mean Platelet Volume 10.7 fL (9.4-12.4); Platelet Count 135 X10*3/uL (160-400); Red Cell Distribution Width 13.4 % (11.0-16.0)
[2024-07-29] MEDS: Midazolam HCl 2 MG/2 ML VIAL IVPUSH (09:50)
[2024-07-29] MEDS: Lactated Ringers 1,000 ML 100 ML IVCONT (09:50)
[2024-07-29 09:52] LABS: INTERNATIONAL NORM RATIO 1.2 (0.9-1.1); Prothrombin Time 13.6 SEC (10.9-12.4)
[2024-07-29 10:03] LABS: Alanine Aminotransferase 28 U/L (0-40); Albumin Level 5.3 g/dL (3.5-5.0); Alkaline Phosphatase 85 U/L (39-117); Anion Gap 12 (12-20); Aspartate Amino Transferase 29 U/L (5-37); Blood Urea Nitrogen 11 mg/dL (9-16); Calcium 10.1 mg/dL (8.4-10.2); Carbon Dioxide 25 mmol/L (22-29); Chloride 105 mmol/L (96-108); Creatinine Clr Calc Pharmacy 118.9; Estimated Glomerular Filt Rate > 60; Glucose Fasting 96 mg/dL (60-99); Potassium 3.9 mmol/L (3.3-5.1); Sodium 138 mmol/L (135-145); Total Protein 8.5 g/dL (6.5-8.0)
[2024-07-29 11:27] VITALS: BP 105/71; PULSE 78; RESP 14; TEMP 36.6; O2SAT 97
--- NOTE | 2024-07-29 11:32 | PM.OP ---
Brief Operative Note Date of Service: 07/29/24 Pre-op diagnosis: GERD, Screening Post-op diagnosis: other (Gastritis, Diverticulosis) Procedure: EGD with bx, Colonoscopy to the cecum and TI Surgeon: Jonathan Ruby MD Anesthesia: MAC Was an Partner Manager used for this Procedure?: No Estimated blood loss (mL): 2.0 Pathology: other (A. Gastric antrum) Condition: stable Disposition: PACU
[2024-07-29 11:42] VITALS: BP 122/91; PULSE 69; RESP 16; TEMP 36.6; O2SAT 96
--- NOTE | 2024-07-30 07:31 | OP_ITS ---
DATE OF SERVICE: 07/29/2024 SURGEON: Jonathan Ruby MD INDICATIONS: The patient presents for evaluation of history of gastroesophageal reflux and gastric ulcer, and colorectal cancer screening. Full consent was obtained from him for this, including risks of bleeding and perforation. PREOPERATIVE DIAGNOSIS: POSTOPERATIVE DIAGNOSIS: PROCEDURE PERFORMED: ESTIMATED BLOOD LOSS: COMPLICATIONS: ANESTHESIA: Medication used, monitored anesthesia care. ASSISTANTS: SPECIMENS: PREOPERATIVE DIAGNOSES: Gastroesophageal reflux, history of gastric ulcer, and colorectal cancer screening. POSTOPERATIVE DIAGNOSES: Gastroesophageal reflux, history of gastric ulcer, colorectal cancer screening, minimal hiatal hernia, mild antral gastritis, diverticulosis, and internal hemorrhoids. PROCEDURES PERFORMED: Esophagogastroduodenoscopy with biopsy, and colonoscopy to the cecum and terminal ileum. DESCRIPTION OF PROCEDURE: The patient was placed in the left lateral decubitus position. The Olympus video gastroscope was passed in the posterior oropharynx and upper esophagus under direct vision. The scope was passed slowly into the distal esophagus. The gastroesophageal junction appeared normal at 40 cm. There was no sign of any esophagitis, varices, nor Keenan esophagus. The scope entered the stomach. There was a minimal hiatal hernia. The scope was advanced to the pylorus. The duodenum was cannulated to the descending portion. The duodenum including the bulb appeared normal without mass or ulceration. Scope was withdrawn back into the stomach. The gastric antrum had areas of erythema, but no erosions or ulceration. There was good peristalsis. Biopsies were obtained from the antrum. The scope was retroflexed visualizing the proximal stomach carefully, which appeared normal, without any sign of mass or ulceration. The scope was straightened and withdrawn back to the esophagus. The esophageal mucosa appeared normal. The scope was withdrawn from the patient. He was turned around for colonoscopy. The digital rectal exam revealed no abnormalities. The Olympus video pediatric colonoscope was entered into the rectum and advanced easily to the cecum. Once in the cecum, I did identify normal-appearing cecal pouch with appendiceal orifice and a normal-appearing ileocecal valve. The terminal ileum was cannulated and appeared normal. Scope was withdrawn back into the colon. The entire cecum and ileocecal valve appeared normal. The scope was slowly withdrawn assessing all mucosal surfaces carefully. Preparation was excellent. I did not visualize any sign of polyps, colitis, or angiodysplasia. There was a mild amount of sigmoid diverticulosis. In the rectum, scope was retroflexed visualizing some internal hemorrhoids, but no other pathology. The rectal mucosa appeared normal. Scope was straightened and withdrawn from the patient. He tolerated the procedures well and was returned to recovery area in stable condition. IMPRESSION: 1. Minimal hiatal hernia. 2. Mild antral gastritis. 3. Diverticulosis. 4. Internal hemorrhoids. PLAN: Results of the pathology will be checked. I would recommend a repeat colonoscopy in 10 years. He has been using omeprazole daily, but at this point, I will advise him that he could try to stop it and see how he does without it, but if he does need it for reflux or other symptoms, he could always resume it either daily or as needed. He will otherwise see me on a p.r.n. basis. MD JESSICA Ugalde/CAITLIN / [phone]
== END 2024-07-29 12:11 | disposition home or self-care (01) ==
PROVIDERS: Nurse Practitioner; PCP Physician Assistant; Visit Provider Internal Medicine
PROC: (CPT 45378; principal; 2024-07-29 10:30)
DX: Z12.11 Encounter for screening for malignant neoplasm of colon (principal); K57.30 Diverticulosis of large intestine without perforation or abscess without bleeding; K64.8 Other hemorrhoids; K21.9 Gastro-esophageal reflux disease without esophagitis; Z87.11 Personal history of peptic ulcer disease; K29.50 Unspecified chronic gastritis without bleeding; K44.9 Diaphragmatic hernia without obstruction or gangrene; F90.9 Attention-deficit hyperactivity disorder, unspecified type; Z79.899 Other long term (current) drug therapy; Z88.0 Allergy status to penicillin; Z88.8 Allergy status to other drugs, medicaments and biological substances; Z98.890 Other specified postprocedural states
CPT/HCPCS: 45378; 43239; 36415; 80053; 85027; 85610; 88305; 88313; 88342; J1596; J2003; J2250; J2704; J3010